=== PATIENT | male | born 1935 | race Caucasian/White ===

== ENCOUNTER → 2016-05-25 | Outpatient (CLI) | payer MEDICARE, BC | LOC: M SMT 10:05 | PROVIDERS: ATTEND Urology | DX: C61 Malignant neoplasm of prostate (principal) ==

== ENCOUNTER → 2016-06-07 | Outpatient (CLI) | payer MEDICARE, BC ==
--- NOTE | 2016-06-07 11:59 | RADONC ---
RADIATION ONCOLOGY FOLLOW UP NOTE DATE: 06/07/2016 DIAGNOSIS: Prostate cancer. STAGE: II, [id number]. ECOG PERFORMANCE STATUS: 0. FOLLOWUP NOTE: Mr. 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 The patient presents today reporting that he is doing quite well with no complaints at this time related to his radiation therapy or disease. He is having no urinary or bowel difficulties and no bone pain. The patient's review of systems is noncontributory. He denies nausea, vomiting, fevers, chills, night sweats, diplopia, headaches, anxiety or depression, anorexia, weight loss, visual disturbances, chest pain, urinary or bowel difficulties, bone pain, or neurological problems. PHYSICAL EXAMINATION: The patient is a well-developed, well-nourished male in no acute distress. HEENT exam is normocephalic, atraumatic. Extraocular movements are intact. There is no palpable cervical, supraclavicular, infraclavicular, axillary, or inguinal lymphadenopathy present. Lungs are clear to auscultation and percussion. Heart has a regular rate and rhythm. Abdomen is benign with no hepatosplenomegaly, masses, or tenderness. Rectal examination reveals a normal anal sphincter tone. His prostate is smooth with no evidence of nodularity. Skeletal examination reveals no tenderness to pressure or percussion of the bony skeleton. Extremities reveal no clubbing, cyanosis, or edema. Neurologic exam is grossly intact as is the remainder of the physical examination. ASSESSMENT: The patient is clinically doing quite well at this point. He has been seen by Dr. Murphy and initiated androgen deprivation therapy. A PSA was done on 05/25/2016 and is now down to 1.7. Prior PSA in March was 10.1. The patient is continuing with his therapy with Dr. Murphy and therefore I have set him up for a routine followup in our office in 1 year. cc: Norberto Samano Jr, MD Alejandro Rodriguez, MD
== END ==
LOC: M ONCR 08:47
PROVIDERS: ATTEND Radiology Radiation Oncology
DX: C61 Malignant neoplasm of prostate (principal)

== ENCOUNTER → 2016-06-13 | Outpatient (REF) | payer MEDICARE, BC ==
[2016-06-13 18:22] LABS: INR 1.07
== END ==
LOC: M LAB REF 16:34
PROVIDERS: ATTEND Internal Medicine Medical Oncology
DX: C61 Malignant neoplasm of prostate (principal); K76.89 Other specified diseases of liver; Z79.899 Other long term (current) drug therapy

== ENCOUNTER → 2016-06-22 | Outpatient (CLI) | payer MEDICARE, BC ==
[~2016-06-22] MED LIST: ACETAMINOPHEN 325 MG TAB As Ordered ONE; LIDOCAINE 1% MDV 20ML VIAL As Ordered ONE
--- NOTE | 2016-06-22 16:51 | REP ---
ULTRASOUND GUIDED LIVER BIOPSY: The procedure was performed under the direct supervision of Dr. Segovia. The patient has a history of a large low density lesion in the liver seen on a previous CT scan dated 04/27/2016. The risks and benefits of the procedure were explained to the patient and informed consent was obtained. The liver mass was localized using ultrasound guidance. The skin was prepped and draped in a sterile fashion. 1% lidocaine was used as local anesthetic. Using ultrasound guidance, a 19/20-gauge coaxial needle biopsy system was inserted and advanced into the liver. Four core biopsy samples were obtained and sent to the lab. The patient tolerated the procedure well and there were no immediate complications. After the appropriate amount of monitored convalescence, the patient was discharged from the department. Reviewed by TRINA Miranda 06/22/2016 05:18 PEdited and Signed by Javi Segovia MD 06/23/2016 06:26 P
== END ==
LOC: M RADPRO 08:08
PROVIDERS: ATTEND Internal Medicine Medical Oncology
DX: D37.6 Neoplasm of uncertain behavior of liver, gallbladder and bile ducts (principal); M19.90 Unspecified osteoarthritis, unspecified site; I48.91 Unspecified atrial fibrillation; R97.20 Elevated prostate specific antigen [PSA]; C61 Malignant neoplasm of prostate; Z87.891 Personal history of nicotine dependence; Z79.899 Other long term (current) drug therapy

== ENCOUNTER → 2016-08-01 | Outpatient (CLI) | payer MEDICARE, BC | LOC: M SMT 13:10 | PROVIDERS: ATTEND Nurse Practitioner Family | DX: R16.0 Hepatomegaly, not elsewhere classified (principal); D37.6 Neoplasm of uncertain behavior of liver, gallbladder and bile ducts ==

== ENCOUNTER → 2016-09-20 | Outpatient (CLI) | payer MEDICARE, BC ==
--- NOTE | 2016-09-21 10:19 | REP ---
PET/CT: HISTORY: Restaging prostate carcinoma. Metastatic disease to the liver. COMPARISONS: Comparison is made with CT study from April 27, 2016. Comparison bone scan April 11, 2016. TECHNIQUE: 55 minutes following the intravenous injection of a 11 mCi dose of F-18 FDG, three-dimensional PET scintigraphy is acquired from the skull base to the proximal thighs. Triplanar noncontrast CT scanning is acquired through the same anatomic range for attenuation correction, and image registration with scan parameters optimized to minimize radiation exposure to the patient. PET scintigraphy and CT datasets were fused and displayed on a workstation with multiplanar and projection display capability. PET/CT FINDINGS: The known large right hepatic lobe liver mass lesion shows an annular pattern of peripheral hypermetabolic uptake. This pattern suggests central necrosis. The maximum standard uptake value within the periphery of the lesion is 8.8. This is along the posterolateral aspect. Interestingly, the lesion appears to have decreased in size in the interval since the April 27, 2016 prior study. It measured 9 cm in greatest dimension on the April 21 CT study and on today's noncontrast CT study its greatest dimension is 5.6 cm. No other hypermetabolic hepatic uptake is seen. There is no evidence of hypermetabolic retroperitoneal or pelvic lymphadenopathy. There are prostate seeds noted on the accompanying CT study. No abnormal hypermetabolic uptake is seen within the chest. The head and neck soft tissues are unremarkable. No pulmonary parenchymal hypermetabolic uptake is seen. There is a calcified granuloma in the left lower lobe. IMPRESSION: The known right hepatic lobe liver mass shows peripheral pattern of hypermetabolic uptake. It has decreased in size however. This pattern raises a question of an inflammatory lesion such as hepatic abscess. Malignancy is not excluded. Consider repeat needle biopsy and aspiration. Signed by Umer Tavarez MD 09/21/2016 01:15 P
== END ==
LOC: M PLARAD 15:29
PROVIDERS: ATTEND Internal Medicine Medical Oncology
DX: C61 Malignant neoplasm of prostate (principal); C78.7 Secondary malignant neoplasm of liver and intrahepatic bile duct
CPT/HCPCS: 78815; A9552

== ENCOUNTER → 2016-09-27 | Outpatient (REF) | payer MEDICARE, BC | LOC: M LAB REF 12:28 | PROVIDERS: ATTEND Internal Medicine Medical Oncology | DX: C61 Malignant neoplasm of prostate (principal) ==

== ENCOUNTER 2016-10-11 22:16 | Inpatient (IN) | payer MEDICARE, BC ==
[~2016-10-11] VITALS: Ht 180.3 cm; Wt 87.0 kg
[2016-10-11] MEDS ORDERED: ELIQ5TAB PO (22:35)
[2016-10-11 23:44] LABS: DIFF SLIDE NUMBER 345; MEAN CORPUSCULAR HEMOGLOBIN 32.3 pg (27.0-33.0); MEAN CORPUSCULAR HGB CONC 35.4 g/dl (32.0-36.5); MEAN CORPUSCULAR VOLUME 91.2 fl (80.0-96.0); RED CELL DISTRIBUTION WIDTH 12.8 % (11.5-14.5); WHITE BLOOD COUNT 3.9 K/mm3 (4.0-10.0)
[2016-10-12 00:05] LABS: ALBUMIN 2.8 GM/DL (3.2-5.2); ALBUMIN/GLOBULIN RATIO 0.78 (1.00-1.93); ALKALINE PHOSPHATASE 115 U/L (45-117); ALT/SGPT 35 U/L (12-78); ANION GAP 7 MEQ/L (8-16); AST/SGOT 21 U/L (15-37); BILIRUBIN,DIRECT 0.5 MG/DL (0.0-0.2); BILIRUBIN,TOTAL 1.9 MG/DL (0.2-1.0); BLOOD UREA NITROGEN 19 MG/DL (7-18); CALCIUM LEVEL 8.7 MG/DL (8.8-10.2); CARBON DIOXIDE LEVEL 25 MEQ/L (21-32); CHLORIDE LEVEL 100 MEQ/L (98-107); CREATININE FOR GFR 1.08 MG/DL (0.70-1.30); GLOMERULAR FILTRATION RATE > 60.0 (>35); GLUCOSE, FASTING 158 MG/DL (83-110); POTASSIUM SERUM 4.2 MEQ/L (3.5-5.1); SODIUM LEVEL 132 MEQ/L (136-145); TOTAL PROTEIN 6.4 GM/DL (6.4-8.2)
[2016-10-12 00:06] LABS: PLATELET COUNT, AUTOMATED 99 k/mm3 (150-450)
[2016-10-12 00:18] LABS: BANDS 3 % (< 11); BASOPHILS 1 % (0-4); EOSINOPHILS 1 % (0-5)
[2016-10-12] MEDS ORDERED: cefTRIAXone SOD 1 GM in D5W MINI-BAG PLUS 50 ML IV ONE (01:45)
[2016-10-12] MEDS ORDERED: ONDA1TAB16 PO (02:01)
[2016-10-12] MEDS ORDERED: SYST1SOL OU (02:01)
[2016-10-12] MEDS ORDERED: PROC10TA PO (02:01)
[2016-10-12] MEDS ORDERED: PROCHLORPERAZINE 5 MG TAB (S0183) PO PRN (05:15)
[2016-10-12] MEDS ORDERED: ONDANSETRON 4 MG TAB (S0181) PO PRN (05:15)
[2016-10-12] MEDS ORDERED: PIPERACILLIN/TAZOBACTAM SOD 4.5 GM in D5W MINI-BAG PLUS 100 ML IV SCH (06:00)
[2016-10-12 06:10] VITALS: BP 130/65
--- NOTE | 2016-10-12 06:23 | PHACANCOPD ---
PHARMACY VANCOMYCIN DOSING Pt Demographics Demographics Patient Age:81 , Weight: , Gender: male Adjusted Body Weight Date: 10/12/16, Adjusted Body Weight: [80] Kg Events Past 24 Hours Events Past 24 Hours: NO: Dialysis, Diuretic Therapy, Change in CrCl, Fever, Elevation in WBC, Pending Diagnostics, Pending Procedures, Other Vancomycin Vancomycin Target Ranges: 15-20 mcg/ml Vancomycin Load Y/N: Yes Load Dose Date Time Vancomycin Load Dose: 1500MG Date: 10-12 Time: 0800 Vancomycin Dose Date: 10/12/16. Current Vancomycin Dose: [1000MG Q12H] Intermittent Dosing?: No Labs Labs Item Value Date Time White Blood Count 3.9 K/mm3 L 10/11/16 2328 Creatinine 1.08 MG/DL 10/11/16 2328 Vital Signs Label Value Date Time Patient Temperature 98.0 degrees F 10/12/16 0520 Temperature Source Temporal 10/12/16 0520 Micro Microbiology 10/12/16 Blood Culture, Received Pending 10/11/16 Blood Culture, Received Pending 10/11/16 Respiratory Virus Panel (PCR) ([facility]) - Final, Complete 10/11/16 Urine Culture, Received Pending Creatinine Clearance Date:10/12/16. Creatinine Clearance: [55]. Pending Labs Trough 06-09 @0700 Assessment and Plan Maintaining Current Dose?: Yes Reason for dose change: No Dose Change Pharmacist Note Pharmacist Note Date: 10/12/16. Pharmacist note:Dosed at 1000mg q12h with a trough ordered 06-09 @ 0700. Will continue to monitor and make adjustments as needed. JEFRY [facility]I [facility] Oct 12, 2016 06:23
[2016-10-12] MEDS ORDERED: VANCOMYCIN HCL 500 MG in D5W MINI-BAG PLUS 100 ML IV ONE (06:30)
--- NOTE | 2016-10-12 07:13 | HPEPDOC ---
General Date of Admission Oct 12, 2016 at 05:22 Primary Care Physician: Jr Samano Collins Attending Physician: VIRGINIA BARKER DO Chief Complaint The patient is a 81-year-old male admitted with a reason for visit of Pneumonia. Source: Patient Exam Limitations: No limitations Timing/Duration: 24 hours Severity: Moderate Associated Symptoms: Cough, Fever, Chills, Loss of appetite History of Present Illness 51-year-old male, history of prostate cancer status post radiation, now metastasis to liver. Received post-chemotherapy on last . Patient is now getting temperature of 101. Cough, fever, chills. Home Medications Scheduled Apixaban Base (Eliquis) 5 Mg Tab, 5 MG PO BID, (Reported) Polyethylene Glycol (Systane 0.4-0.3 %) 15 Ml June, 2 DROP OU BID, (Reported) Scheduled PRN Ondansetron HCl (Ondansetron HCl) 8 Mg Tab, 8 MG PO BID PRN for NAUSEA, ( Reported) Prochlorperazine Maleate (Prochlorperazine Maleate) 10 Mg Tab, 10 MG PO Q6H PRN for NAUSEA, (Reported) Allergies Coded Allergies: No Known Allergies (Verified Allergy, Unknown, 04/13/04) Past Medical History Medical History Prostate cancer Surgical History Hernia Family History Significant Family History: No pertinent family hx Social History * Smoker: Denies Alcohol: Denies Drugs: denies Recent Travel/Sick Contacts: Denies: Recent travel, Recent sick contacts Psychosocial History: No pertinent psych hx Review of Symptoms Constitutional: Reports: Chills, Fever, Malaise, Night Sweats, Weakness Eyes: Denies: Pain, Vision change ENT: Denies: Head Aches, Ear Pain, Dysphagia Skin: Denies: Rash, Lesions, Breakdown Pulmonary: Reports: Dyspnea, Cough, Pleuritic Chest Pain Cardiovascular: Denies: Chest Pain, Palpitations, Orthopnea, Paroxysmal Noc. Dyspnea, Lt Headedness Gastrointestinal: Denies: Nausea, Vomiting, Abdominal Pain, Diarrhea Genitourinary: Denies: Dysuria, Frequency, Incontinence, Retention Hematologic: Denies: Bruising, Bleeding Excessively Musculoskeletal: Denies: Neck Pain, Back Pain, Joint Pain, Muscle Pain, Spasms Neurological: Denies: Weakness, Numbness, Change in speech, Confusion Psych: Reports: Mood Normal, Denies: Depression, Memory Issues Physical Examination General Exam: Positive: Alert, Mild Distress Eye Exam: Positive: PERRLA, Conjunctiva & lids normal, EOMI, Negative: Sclera icteric ENT Exam: Positive: Atraumatic, Mucous membr. moist/pink, Pharynx Normal Neck Exam: Positive: Supple, Negative: JVD, thyromegaly Chest Exam: Positive: Rhonchi, Wheezing, Diminished Heart Exam: Positive: Rate Normal, Regular Rhythm, Normal S1, Normal S2, Negative: Murmurs, Rubs Telemetry: Positive: No significant arrhythmia Abdomen Exam: Positive: Normal bowel sounds, Soft, Negative: Tenderness, Hepatospenomegaly Extremity Exam: Positive: Normal pulses, Negative: Clubbing, Cyanosis, Edema Skin Exam: Positive: Nl turgor and temperature, Negative: Breakdown, Lesion Neuro Exam: Positive: Normal Gait, Normal Speech, Cranial Nerves 3-12 NL, Reflexes 2+ Psych Exam: Positive: Mental status NL, Mood NL, Oriented x 3 Vital Signs Vital Signs Date Time Temp Pulse Resp B/P (MAP) Pulse Ox O2 Delivery O2 Flow Rate FiO2 10/12/16 06:10 97.9 102 17 130/65 (86) 96 Room Air Laboratory Data Labs 24H Laboratory Tests 2 10/11/16 23:28: Neutrophils 53, Band Neutrophils 3, Lymphocytes (Manual) 26, Monocytes (Manual) 13H, Eosinophils (Manual) 1, Basophils (Manual) 1, Metamyelocytes 1H, Atypical Lymphocytes 2, Platelet Estimate DECREASED, Red Blood Cell Morphology NORMAL, Urine Appearance HAZY, Urine Color ADILENE, Urine pH 6.0, Urine Specific Liberal 1.020, Urine Protein 1+H, Urine Glucose (UA) NEGATIVE, Urine Ketones TRACEH, Urine Urobilinogen 2.0H, Urine Bilirubin NEGATIVE, Urine Leukocyte Esterase NEGATIVE, Urine Blood NEGATIVE, Urine Nitrite NEGATIVE, Urine WBC (Auto) 2, Urine RBC (Auto) 4H, Urine Hyaline Casts (Auto) 19, Urine Bacteria (Auto) NEGATIVE, Urine Squamous Epithelial Cells 0, Urine Mucus (Auto) SMALL, Urine Sperm (Auto) , Anion Gap 7L, Glomerular Filtration Rate > 60.0, Lactic Acid Level 1.6, Calcium Level 8.7L, Aspartate Amino Transf (AST/SGOT) 21, Alanine Aminotransferase (ALT/SGPT) 35, Alkaline Phosphatase 115, Total Bilirubin 1.9H, Direct Bilirubin 0.5H, Total Protein 6.4, Albumin 2.8L, Albumin/Globulin Ratio 0.78L CBC/BMP Laboratory Tests 10/11/16 23:28 Red Blood Count 4.27 L, Mean Corpuscular Volume 91.2, Mean Corpuscular Hemoglobin 32.3, Mean Corpuscular Hemoglobin Concent 35.4, Red Cell Distribution Width 12.8 Microbiology Microbiology 10/12/16 Blood Culture, Received Pending 10/11/16 Blood Culture, Received Pending 10/11/16 Respiratory Virus Panel (PCR) ([facility]) - Final, Complete 10/11/16 Urine Culture, Received Pending Assessment/Plan 81-year-old male, history of prostate cancer status post radius and metastasis to liver and getting chemotherapy last week presented with them cough, fever, chills and found to have an pneumonia. Problems (1) Pneumonia Status: Acute Problem Text: As started on IV Zosyn and vancomycin. white Blood count 3.9 percent in follow-up oncology on outpatient Plan / VTE VTE Prophylaxis Ordered?: Yes Plan IVF: Initiate Diet: Continue Current Activity: Continue Current Anticipated Discharge: Home LULA LOCKHART MD Oct 12, 2016 07:13
[2016-10-12] MEDS: VANCOMYCIN HCL 1,000 MG, VIAL MATE ADAPTER 1 EACH in D5W 250 ML IV SCH ×2 (08:19→20:19)
[2016-10-12] MEDS: APIXABAN 5 MG TAB (ELIQUIS) PO SCH ×2 (08:20→22:06)
[2016-10-12] MEDS: POLYVINYL ALCOHOL OPHTH SOLN 15 ML(LIQUITEARS) OU SCH ×2 (08:38→21:00)
--- NOTE | 2016-10-12 08:41 | REP ---
Chest x-ray: Two views. History: Systemic inflammatory response syndrome. Comparison study: December 18, 2015. There is increased density overlying the dome of the right hemidiaphragm in the right lower lobe consistent with an infiltrate. Lung oconnell are otherwise clear. Heart size is normal. The aorta is calcific and tortuous. There are degenerative changes in the thoracic spine and in the shoulders. No evidence of free subdiaphragmatic air. Impression: Right lower lobe infiltrate. Signed by Umer Tavarez MD 10/12/2016 10:18 A
[2016-10-12 09:37] LABS: MEAN CORPUSCULAR HEMOGLOBIN 32.5 pg (27.0-33.0); MEAN CORPUSCULAR HGB CONC 35.3 g/dl (32.0-36.5); RED CELL DISTRIBUTION WIDTH 12.8 % (11.5-14.5); WHITE BLOOD COUNT 8.5 K/mm3 (4.0-10.0)
[2016-10-12] MEDS: PIPERACILLIN/TAZOBACTAM SOD 4.5 GM in D5W MINI-BAG PLUS 100 ML IV SCH ×3 (09:47→22:06)
[2016-10-12 10:00] VITALS: BP 112/67
[2016-10-12 10:09] LABS: ANION GAP 10 MEQ/L (8-16); BLOOD UREA NITROGEN 18 MG/DL (7-18); CALCIUM LEVEL 8.4 MG/DL (8.8-10.2); CARBON DIOXIDE LEVEL 27 MEQ/L (21-32); CHLORIDE LEVEL 99 MEQ/L (98-107); CREATININE FOR GFR 1.13 MG/DL (0.70-1.30); GLOMERULAR FILTRATION RATE > 60.0 (>35); GLUCOSE, FASTING 205 MG/DL (83-110); POTASSIUM SERUM 3.8 MEQ/L (3.5-5.1); SODIUM LEVEL 136 MEQ/L (136-145)
--- NOTE | 2016-10-12 11:00 | IPN ---
DATE: 10/12/2016 81-year-old gentleman seen at bedside. He feels that he is less short of breath. Does continue to have difficulty with cough. He informs me that he is being treated for prostate cancer, has radioactive seeds placed by Dr. Murphy and follows with Dr. Wang for his chemotherapy. His last dose of chemotherapy was approximately a week ago. He states that he did have some subjective fevers, chills at home as well as this productive cough that he seems to be having. OBJECTIVE: Temperature is 97.9, pulse 94, respiratory rate 17 and nonlabored, blood pressure 130/65, SPO2 is 96% on room air. GENERAL: The patient appears to be in no acute distress, alert and oriented. HEENT: Unremarkable. LUNGS: Diminished bibasilar breath sounds, occasional wheeze. HEART: Regular rate and rhythm. ABDOMEN: Soft. EXTREMITIES: No edema or calf tenderness. LABORATORY DATA: White count 8.5, hemoglobin 13.3, platelets 100,000. Sodium is 136, potassium 3.8, chloride 99, bicarb 27, anion gap 10, BUN is 18, creatinine 1.13, glucose 205. ASSESSMENT/PLAN: 1. Community acquired pneumonia. Continue with current antibiotic regimen. Will check blood cultures, sputum cultures. Those are pending at this time. 2. Neutropenia. This is resolved with appropriate response with his current infection. Will continue to follow. 3. Thrombocytosis. Appears to be stable. Will avoid any heparin products. 4. Prostate cancer as indicated above. Continue to followup outpatient with Dr. Wang and Dr. Murphy. He does have a history of metastatic disease with spread to the liver. 5. DVT prophylaxis. Thromboembolic deterrent stockings (TEDS) and sequentials. Encouraged to ambulate when he is not in bed. DISPOSITION: Anticipate home discharge in the next 24-48 hours.
[2016-10-12 14:00] VITALS: BP 119/69
[2016-10-12] MEDS: ONDANSETRON 4MG/2ML VIAL (J2405) IV PRN ×2 (17:22→22:06)
[2016-10-12 22:00] VITALS: BP 113/60
[2016-10-13 02:00] VITALS: BP 125/66
[2016-10-13] MEDS: PIPERACILLIN/TAZOBACTAM SOD 4.5 GM in D5W MINI-BAG PLUS 100 ML IV SCH (03:00)
[2016-10-13 06:00] VITALS: BP 114/67
[2016-10-13] MEDS ORDERED: DOXY-278 PO (07:32)
[2016-10-13] MEDS: POLYVINYL ALCOHOL OPHTH SOLN 15 ML(LIQUITEARS) OU SCH (08:00)
[2016-10-13] MEDS: APIXABAN 5 MG TAB (ELIQUIS) PO SCH (08:00)
--- NOTE | 2016-10-13 08:15 | DSES ---
DATE OF ADMISSION: 10/12/2016 DATE OF DISCHARGE: 10/13/2016 ADMISSION/DISCHARGE DIAGNOSES: 1. Community-acquired pneumonia. 2. Prostate cancer with metastatic disease on chemotherapy and radioactive seed therapy. 3. Thrombocytosis likely secondary to chemotherapy. 4. Neutropenia, which has resolved, likely secondary to chemotherapy. BRIEF HOSPITAL COURSE: 81-year-old gentleman presented to the emergency department on 10/12/2016 with increasing shortness of breath, productive sputum, cough, noted neutropenia of 3.9, platelet count of 99,000 with some thrombocytosis likely secondary to his chemotherapy as well. His chest x-ray did show a right lower lobe infiltrate. He was admitted, started on Zosyn, vancomycin. Has remained afebrile. Labs are unremarkable with a normalized white count. He does have some mild thrombocytosis, however this does appear to be improving as well, and he is felt to be at his baseline. Again, he has remained afebrile, normal white count, no signs of sepsis and is felt to be appropriate for home discharge on oral antibiotics. He reports no known drug allergies. He did give us a sputum culture, which does not have a result at this time, but his blood cultures remain negative. He had a negative respiratory virus panel as well. Discharge condition is good. DISPOSITION: Discharge to home. DISCHARGE MEDICATIONS: - doxycycline 100 mg twice a day for 10 days - Eliquis 5 mg twice a day - Zofran ODT 8 mg twice a day as needed - Systane eye drops - Compazine 10 mg every 6 hours as needed, nausea DISCHARGE INSTRUCTIONS: Discharge to home. Activity as tolerated. Regular diet. Followup with primary care provider in a week. See his oncologist for regular scheduled appointments and ongoing chemotherapy. Seek medical attention if symptoms should worsen. Voices understanding. Discharge took approximately 35 minutes. JOSE ANTONIO
== END 2016-10-13 09:57 | disposition home or self-care (01) | DRG 194 ==
LOC: M ED 23:22 → M ED INP 10-12 05:22 → M MSPAV 10-12 06:08
PROVIDERS: ADMIT Internal Medicine; ATTEND Hospitalist
DX: J18.9 Pneumonia, unspecified organism (principal); C78.7 Secondary malignant neoplasm of liver and intrahepatic bile duct; C61 Malignant neoplasm of prostate; D70.1 Agranulocytosis secondary to cancer chemotherapy; D47.3 Essential (hemorrhagic) thrombocythemia; Z79.899 Other long term (current) drug therapy

== ENCOUNTER → 2016-11-27 | Outpatient (CLI) | payer MEDICARE, BC ==
[~2016-11-27] MED LIST changes: -ACETAMINOPHEN 325 MG TAB As Ordered ONE; +DOXY-278 PO; +ELIQ5TAB PO; -LIDOCAINE 1% MDV 20ML VIAL As Ordered ONE; +ONDA8TAB7 PO; +PROC10TA PO; +SYST1SOL OU
[2016-11-27 14:28] LABS: MEAN CORPUSCULAR HEMOGLOBIN 32.7 pg (27.0-33.0); MEAN CORPUSCULAR HGB CONC 33.7 g/dl (32.0-36.5); MEAN CORPUSCULAR VOLUME 96.9 fl (80.0-96.0); RED CELL DISTRIBUTION WIDTH 13.4 % (11.5-14.5); WHITE BLOOD COUNT 4.5 K/mm3 (4.0-10.0)
[2016-11-27 14:56] LABS: ANION GAP 7 MEQ/L (8-16); BLOOD UREA NITROGEN 12 MG/DL (7-18); CALCIUM LEVEL 9.3 MG/DL (8.8-10.2); CARBON DIOXIDE LEVEL 27 MEQ/L (21-32); CHLORIDE LEVEL 104 MEQ/L (98-107); CREATININE FOR GFR 0.92 MG/DL (0.70-1.30); GLOMERULAR FILTRATION RATE > 60.0 (>35); GLUCOSE, FASTING 95 MG/DL (83-110); POTASSIUM SERUM 4.5 MEQ/L (3.5-5.1); SODIUM LEVEL 138 MEQ/L (136-145)
== END ==
LOC: M SMT 08:32
PROVIDERS: ATTEND Urology
DX: C61 Malignant neoplasm of prostate (principal)

== ENCOUNTER → 2017-01-17 | Outpatient (REF) | payer MEDICARE, BC | LOC: M LAB REF 12:28 | PROVIDERS: ATTEND Internal Medicine Medical Oncology | DX: C61 Malignant neoplasm of prostate (principal) ==

== ENCOUNTER → 2017-02-09 | Outpatient (CLI) | payer MEDICARE, BC ==
--- NOTE | 2017-02-13 07:00 | RADONC ---
RADIATION ONCOLOGY FOLLOWUP NOTE DATE: 02/09/2017 CHART NUMBER: [id number] DIAGNOSIS: Prostate cancer. STAGE: Metastatic. ECOG PERFORMANCE STATUS: 0. FOLLOWUP NOTE: Mr. Steve is a very pleasant 81-year-old white male with the diagnosis of metastatic moderate to poorly differentiated adenocarcinoma of the prostate who is presenting to us again for followup visit to discuss his options. The patient is having no bone pain, back pain or other issues. He has no urinary or bowel difficulties. REVIEW OF SYSTEMS: The patient's review of systems is noncontributory. Denies nausea, vomiting, fevers, chills, night sweats, diplopia, headaches, anxiety or depression, anorexia, weight loss, visual disturbances, chest pain, urinary or bowel difficulties, bone pain, or neurological problems. PHYSICAL EXAMINATION: The patient is a well-developed, well-nourished male in no acute distress. HEENT exam is normocephalic, atraumatic. Extraocular movements are intact. There is no palpable cervical, supraclavicular, infraclavicular, axillary, or inguinal lymphadenopathy present. Lungs are clear to auscultation and percussion. Heart has a regular rate and rhythm. Abdomen is benign with no hepatosplenomegaly, masses, or tenderness. Rectal examination reveals a normal anal sphincter tone. His prostate is smooth with no evidence of nodularity. Skeletal examination reveals no tenderness to pressure or percussion of the bony skeleton. Extremities reveal no clubbing, cyanosis, or edema. Neurologic exam is grossly intact, as is the remainder of the physical examination. ASSESSMENT: I had a very lengthy discussion with this patient and his family lasting well more than half an hour. We discussed whether or not he is going to have his CT scans which are scheduled for sometime in April I believe. I made clear to them that the choice is his. He reports that he will not accept chemotherapy regardless of the results. I told him if the results would not change anything other than make him nervous then he may reasonably consider not doing the scan. If however the scans will lead to a different path in treatment then they are reasonable to do. Once again, I made clear to him that a scan is not a significantly invasive type procedure. Indeed, considering the amount of radiation he has had overall, any radiation from a CT scan would be negligible. I made clear that the patient and his family simply need to focus on what the results would mean to them personally and if they want to know the answer. They are aware that the news could be good and everything is stable or it could show progress in which case a decision would need to be made. I have not set up any appointments with us, but he is more than welcome to come back on a p.r.n. basis. cc: Ana Wang MD, WARNER Smaano Jr, MD Alejandro Rodriguez, MD
== END ==
LOC: M ONCR 13:35
PROVIDERS: ATTEND Radiology Radiation Oncology
DX: C61 Malignant neoplasm of prostate (principal)

== ENCOUNTER → 2017-04-03 | Outpatient (REF) | payer MEDICARE, BC | LOC: M LAB REF 12:46 | PROVIDERS: ATTEND Internal Medicine Medical Oncology | DX: C61 Malignant neoplasm of prostate (principal) ==

== ENCOUNTER → 2017-04-09 | Outpatient (CLI) | payer MEDICARE, BC ==
[~2017-04-09] MED LIST changes: +GASTROGRAFIN SOLUTION 30ML (Q9963) As Ordered ONE; +ISOVUE-370 76% 100ML VIAL (Q9967) As Ordered ONE
--- NOTE | 2017-04-09 12:50 | REP ---
CT of the chest abdomen pelvis with IV and oral contrast: Comparison is 04/27/2016. CT of the chest: There are small hypo densities in the right lobe of the thyroid. These have decreased size from the prior study and are likely thyroid cyst. Consider thyroid ultrasound for follow-up. The calcified granuloma in the lower lobe of the left lung is unchanged. There are no other lung masses or nodules. The anterior tip of the right rib is unchanged, likely representing costochondral calcification. No lytic, blastic or destructive skeletal changes are identified. There are multiple levels of thoracic spine degenerative disc disease. This is unchanged. There is no mediastinal or hilar adenopathy. No axillary adenopathy. Impression: No significant interval change. Hypodense nodules are noted in the thyroid right lobe, decreased in size, likely a thyroid cyst. Consider thyroid ultrasound. Stable calcified granuloma in the left lower lobe. Stable findings at the anterior tip of right first rib compatible with costochondral calcification. CT of the abdomen and pelvis: Comparison is 04/27/2016. Studies performed without and with IV contrast. After IV contrast, multiphase scanning is performed. This is similar to the prior study. The hypodense lesion in the right lobe of the liver is significantly decreased in size, today measuring 4.4 cm (previously 9.0 cm). There are no other focal hepatic lesions. The gallbladder, pancreas and spleen are unremarkable except for multiple small gallbladder cholesterol calculi and splenic calcified granulomas. These are unchanged. The adrenals are unremarkable. There are left renal cortical cysts. These are unchanged. There is no hydronephrosis. The kidneys are otherwise are unremarkable. The abdominal aorta is unremarkable except for tortuosity. There is no retroperitoneal adenopathy. The bowel and mesentery are unremarkable. Pelvis: There is no adenopathy. The bladder is unremarkable. Iridium seeds are noted in the prostate bed. This is unchanged. The bladder is unremarkable. There are no lytic, blastic or destructive skeletal changes. There is bilateral hip osteoarthritis. Impression: The hypodense lesion in the liver has decreased in size. There is no adenopathy or ascites. There are no lytic, blastic or destructive skeletal changes. Iridium seeds are again noted in the prostate bed. There is bilateral hip osteoarthritis, unchanged. The previously identified cholesterol gallbladder calculi are unchanged. Signed by Javi Shah MD 04/09/2017 12:42 P
== END ==
LOC: M RAD 08:43
PROVIDERS: ATTEND Internal Medicine Medical Oncology
DX: C61 Malignant neoplasm of prostate (principal); C78.7 Secondary malignant neoplasm of liver and intrahepatic bile duct; E04.1 Nontoxic single thyroid nodule
CPT/HCPCS: 71260; 74178; Q9963; Q9967

== ENCOUNTER → 2017-05-24 | Outpatient (CLI) | payer MEDICARE, BC ==
[2017-05-24 14:28] LABS: PROSTATIC SPECIFIC AG MONITOR < 0.01 NG/ML (< 4.0)
== END ==
LOC: M SMT 11:04
DX: C61 Malignant neoplasm of prostate (principal)
CPT/HCPCS: 84153

== ENCOUNTER → 2017-05-30 | Outpatient (REF) | payer MEDICARE, BC ==
[2017-05-30 14:16] LABS: APPEARANCE, URINE HAZY (CLEAR); BACTERIA, URINE AUTO NEGATIVE (NEGATIVE); BILIRUBIN, URINE AUTO NEGATIVE (NEGATIVE); BLOOD, URINE BLOOD NEGATIVE (NEGATIVE); CALCIUM OXALATE CRYSTALS LARGE; COLOR, URINE YELLOW (YELLOW); GLUCOSE, URINE (UA) AUTO NEGATIVE (NEGATIVE); KETONE, URINE AUTO NEGATIVE (NEGATIVE); LEUKOCYTE ESTERASE, URINE AUTO NEGATIVE (NEGATIVE); MUCUS, URINE SMALL (NEGATIVE); NITRITE, URINE AUTO NEGATIVE (NEGATIVE); PROTEIN, URINE AUTO NEGATIVE (NEGATIVE); RBC, URINE AUTO 0 /HPF (0-3); SPECIFIC GRAVITY URINE AUTO 1.016 (1.002-1.035); SQUAMOUS EPITHELIAL CELL UR AU 0 /HPF (0-6); UROBILINOGEN, URINE AUTO 0.2 mg/dL (0.0-2.0); WBC, URINE AUTO 1 /HPF (0-3)
== END ==
LOC: M SMT 12:55
DX: R39.9 Unspecified symptoms and signs involving the genitourinary system (principal); Z85.46 Personal history of malignant neoplasm of prostate
CPT/HCPCS: 81001

== ENCOUNTER → 2017-08-24 | Outpatient (REF) | payer MEDICARE, BC | LOC: M SMT 16:47 | DX: Z85.46 Personal history of malignant neoplasm of prostate (principal) | CPT/HCPCS: 88108 ==

== ENCOUNTER 2017-08-26 12:45 | Emergency (ER) | payer MEDICARE, BC | END 2017-08-26 13:56 | disposition home or self-care (01) | LOC: M ED 12:45 | DX: T83.098A Other mechanical complication of other urinary catheter, initial encounter (principal); Y92.9 Unspecified place or not applicable; Y93.9 Activity, unspecified; I48.91 Unspecified atrial fibrillation; Z85.05 Personal history of malignant neoplasm of liver; Z85.46 Personal history of malignant neoplasm of prostate; Z79.01 Long term (current) use of anticoagulants; Z79.899 Other long term (current) drug therapy | CPT/HCPCS: 99283 ==

== ENCOUNTER → 2017-09-10 | Outpatient (REF) | payer MEDICARE, BC | LOC: M SMT 13:12 | DX: N35.9 Urethral stricture, unspecified (principal); Z85.46 Personal history of malignant neoplasm of prostate; R31.9 Hematuria, unspecified | CPT/HCPCS: 87086 ==

== ENCOUNTER → 2017-10-10 | Outpatient (REF) | payer MEDICARE, BC ==
[2017-10-10 14:14] LABS: APPEARANCE, URINE CLOUDY (CLEAR); BACTERIA, URINE AUTO NEGATIVE (NEGATIVE); BILIRUBIN, URINE AUTO NEGATIVE (NEGATIVE); BLOOD, URINE BLOOD NEGATIVE (NEGATIVE); CALCIUM OXALATE CRYSTALS MODERATE; COLOR, URINE YELLOW (YELLOW); GLUCOSE, URINE (UA) AUTO NEGATIVE (NEGATIVE); KETONE, URINE AUTO NEGATIVE (NEGATIVE); LEUKOCYTE ESTERASE, URINE AUTO NEGATIVE (NEGATIVE); MUCUS, URINE SMALL (NEGATIVE); NITRITE, URINE AUTO NEGATIVE (NEGATIVE); PROTEIN, URINE AUTO 1+ mg/dL (NEGATIVE); RBC, URINE AUTO 14 /HPF (0-3); SPECIFIC GRAVITY URINE AUTO 1.019 (1.002-1.035); SQUAMOUS EPITHELIAL CELL UR AU 0 /HPF (0-6); UROBILINOGEN, URINE AUTO 0.2 mg/dL (0.0-2.0); WBC, URINE AUTO 0 /HPF (0-3)
== END ==
LOC: M SMT 13:37
DX: C61 Malignant neoplasm of prostate (principal)
CPT/HCPCS: 81001

== ENCOUNTER → 2017-10-22 | Outpatient (REF) | payer MEDICARE, BC ==
[2017-10-22 15:48] LABS: PROSTATIC SPECIFIC AG MONITOR 0.02 NG/ML (< 4.0)
== END ==
LOC: M LAB REF 13:20
DX: C61 Malignant neoplasm of prostate (principal)
CPT/HCPCS: 84153

== ENCOUNTER → 2017-11-22 | Outpatient (CLI) | payer MEDICARE, BC ==
[2017-11-22 14:32] LABS: PROSTATIC SPECIFIC AG MONITOR 0.03 NG/ML (< 4.0)
== END ==
LOC: M SMT 09:47
DX: Z85.46 Personal history of malignant neoplasm of prostate (principal)
CPT/HCPCS: 84153

== ENCOUNTER → 2018-06-04 | Outpatient (CLI) | payer MEDICARE, BC ==
[~2018-06-04] MED LIST changes: +CIPR500T3 PO; +DITR1TAB PO; -DOXY-278 PO; +DOXY-350 PO; -GASTROGRAFIN SOLUTION 30ML (Q9963) As Ordered ONE; -ISOVUE-370 76% 100ML VIAL (Q9967) As Ordered ONE; +PROB1TAB PO; -PROC10TA PO; +PROC10TA4 PO
== END ==
LOC: M SMT 09:15
PROVIDERS: ATTEND Nurse Practitioner Women's Health
DX: Z85.46 Personal history of malignant neoplasm of prostate (principal)

== ENCOUNTER → 2018-10-31 | Outpatient (CLI) | payer MEDICARE, BC ==
[~2018-10-31] MED LIST changes: +ODOR100T3 PO; +[UNRECOGNIZED DRUG - CODE] PO
--- NOTE | 2018-10-31 15:46 | REP ---
Clinical: Prostate cancer with hepatic metastatic disease. Comparison: 04/09/2017 Technique: Axial noncontrast images of the abdomen with coronal and sagittal re-formations. Findings: Lung bases demonstrate chronic changes without obvious acute process. Comparison is limited due to differences in technique (current examination without intravenous contrast enhancement) and the previously noted 4.4 cm area of low density consistent with metastatic focus currently measures approximately 3.5 cm. However, an adjacent lesion which is not definitively noted on prior examination is suspected and measures 2.7 cm maximal diameter. Smaller lesions cannot be excluded as well. Hepatic and splenic parenchymal calcifications are chronic. Cholelithiasis noted. Pancreas, bilateral adrenal glands and kidneys are relatively normal / stable. Stable left renal cyst again identified measuring approximately 3.7 cm diameter. Visualized small and large bowel grossly unremarkable. No ascites. No obvious adenopathy. Abdominal aorta demonstrates atherosclerotic changes without aneurysm. Osseous structures demonstrate degenerative changes. Impression: 1. Low density lesions within the liver as described above consistent with metastatic disease. Comparison is limited due to differences in technique, but the current examination suggests two adjacent lesions and smaller lesions cannot be excluded. 2. Cholelithiasis. 3. Stable left renal cyst. Electronically Signed by Lance Gleason MD 10/31/2018 03:36 P
== END ==
LOC: M RAD 15:05
PROVIDERS: ATTEND Internal Medicine Hematology & Oncology
DX: K80.19 Calculus of gallbladder with other cholecystitis with obstruction (principal); N28.1 Cyst of kidney, acquired; C78.7 Secondary malignant neoplasm of liver and intrahepatic bile duct

== ENCOUNTER → 2019-01-08 | Outpatient (CLI) | payer MEDICARE, BC ==
[~2019-01-08] MED LIST changes: +COLA100C5 PO; +HYDR-3715 PO; +NORC1TAB7 PO; +ONDA8TAB10 PO; -ONDA8TAB7 PO
== END ==
LOC: M SMT 09:31
PROVIDERS: ATTEND Urology
DX: C61 Malignant neoplasm of prostate (principal)

== ENCOUNTER → 2019-01-21 | Outpatient (POV) | payer MEDICARE, BC ==
[~2019-01-21] VITALS: Ht 180.3 cm; Wt 83.2 kg
[~2019-01-21] MED LIST changes: -COLA100C5 PO; -HYDR-3715 PO; -NORC1TAB7 PO; -ONDA8TAB10 PO; +ONDA8TAB7 PO
[2019-01-21 09:15] VITALS: BP 135/81
--- NOTE | 2019-01-22 11:17 | IRCOV ---
[facility] IR Consult Office Visit IR Consult Office Visit DATE: Jan 21, 2019 REASON FOR CONSULTATION/CHIEF COMPLAINT: Metastatic liver lesion associated with right upper quadrant pain. HISTORY OF PRESENT ILLNESS: 83-year-old gentleman referred by Gen. surgery for liver metastases associated with pain. Patient has a known history of stage IV prostate cancer. This was previously treated with radiation therapy seeds several years ago. He developed poorly differentiated metastatic disease in the liver. He was treated with docetaxel which was associated with intolerable side effects. He has since received Lupron. He describes pain up by the ribs on the right upper quadrant which is there all the time. No aggravating or relieving factors. No association with pain anywhere else. No shortness of breath. No jaundice. No bone pain anywhere. No fevers or chills. No ascites. Patient is also under the care of Dr. Mcdowell and Dr. Jo. ALLERGIES: Please see below. HOME MEDICATIONS: Please see below. PAST MEDICAL HISTORY: 1. Prostate cancer. 2. A. fib. PAST SURGICAL HISTORY: 1. Hernia repair. FAMILY HISTORY: Nonsignificant. SOCIAL HISTORY: Nonsmoker. No significant alcohol. Lives with family. Independent with activities of daily living. REVIEW OF SYSTEMS: Otherwise negative. PHYSICAL EXAMINATION: VITAL SIGNS: Please see below. GENERAL APPEARANCE: Appears well. Comfortable at rest. HEENT: No scleral icterus. RESPIRATORY: Symmetric breath sounds. CARDIOVASCULAR: Normal rate. ABDOMEN: Nondistended. Soft nontender. No shifting dullness. EXTREMITIES: Moving all 4 extremities. Walks unaided. NEUROLOGICAL: Alert and oriented. Normal gait. PSYCHIATRIC: Appropriate to circumstance. LABORATORY DATA: Please see below. Imaging: I personally reviewed the CT scan from October 2018. There is a bilobed hypodense lesion in the right hepatic lobe, changed in configuration and appearance from the CT in 2017. This abuts the capsular surface and is associated with dimpling of the liver capsule. ASSESSMENT/PLAN: 83-year-old male with liver metastases from prostate cancer presents with pain in the right quadrant. This is likely related to capsular involvement by metastatic Disease. This is amenable to Microwave Ablation for both local disease control and symptomatic relief. I discussed the risks and benefits of the procedure with the patient and patient would like to proceed. We will schedule the patient for Microwave ablation of the liver lesion to be done under MAC sedation. Eliquis hold is required 48 Hours prior to procedure. Thank you for this referral. I spent 30 minutes in consultation with the patient. Thank you for this referral. Allergies Coded Allergies: No Known Allergies (Verified , 04/13/04) Home Medications Scheduled Apixaban (Eliquis), 5 MG PO BID, (Reported) L.dinah,Acid,Ferm,Rhm/B.bif,Long (Control Delivery Probiotc Cplt), 1 TAB PO DAILY, (Reported) Pedi Mv No.164/Ferrous Sulfate (-Toddler Multivit-Iron), 1 SUMIT PO DAILY, (Reported) Miscellaneous Medications Garlic (Garlic), 100 MG PO, (Reported) VS, I&O, 24H, Fishbone Vital Signs/I&O Vital Signs Date Time Temp Pulse Resp B/P (MAP) Pulse Ox O2 Delivery O2 Flow Rate FiO2 01/21/19 09:15 97.5 71 16 135/81 (99) 98 MELINDA WILDE MD Jan 22, 2019 11:17
== END ==
LOC: M IRPOV 09:19
PROVIDERS: ATTEND Radiology Diagnostic Radiology
DX: R10.11 Right upper quadrant pain (principal); C61 Malignant neoplasm of prostate; C78.7 Secondary malignant neoplasm of liver and intrahepatic bile duct; I48.91 Unspecified atrial fibrillation; Z92.3 Personal history of irradiation; Z79.01 Long term (current) use of anticoagulants

== ENCOUNTER → 2019-02-24 | Outpatient (CLI) | payer MEDICARE, BC ==
[2019-02-24 10:57] LABS: PROSTATIC SPECIFIC AG MONITOR 2.28 NG/ML (< 4.00)
== END ==
LOC: M SMT 08:42
PROVIDERS: ATTEND Urology
DX: C61 Malignant neoplasm of prostate (principal)

== ENCOUNTER → 2019-02-27 | Outpatient (CLI) | payer MEDICARE, BC ==
[~2019-02-27] MED LIST changes: +HYDR-3715 PO
[2019-02-27 14:06] LABS: BLOOD UREA NITROGEN 11 MG/DL (7-18); CALCIUM LEVEL 9.3 MG/DL (8.8-10.2); CARBON DIOXIDE LEVEL 31 MEQ/L (21-32); CHLORIDE LEVEL 106 MEQ/L (98-107); CREATININE FOR GFR 1.01 MG/DL (0.70-1.30); GLOMERULAR FILTRATION RATE > 60.0 (>35); GLUCOSE, FASTING 101 MG/DL (70-100); POTASSIUM SERUM 4.5 MEQ/L (3.5-5.1); SODIUM LEVEL 140 MEQ/L (136-145)
== END ==
LOC: M SMT 11:44
PROVIDERS: ATTEND Urology
DX: R97.21 Rising PSA following treatment for malignant neoplasm of prostate (principal); C61 Malignant neoplasm of prostate

== ENCOUNTER → 2019-02-28 | Outpatient (REF) | payer MEDICARE, BC ==
[2019-02-28 16:22] LABS: INR 1.18; PROTHROMBIN TIME 14.7 SECONDS (11.8-14.0)
== END ==
LOC: M LAB REF 16:06
PROVIDERS: ATTEND Nurse Practitioner Adult Health
DX: Z01.818 Encounter for other preprocedural examination (principal); Z79.01 Long term (current) use of anticoagulants

== ENCOUNTER → 2019-03-03 | Outpatient (CLI) | payer MEDICARE, BC ==
[~2019-03-03] MED LIST changes: +ISOVUE-370 76% 100ML VIAL (Q9967) As Ordered ONE
--- NOTE | 2019-03-03 10:14 | REP ---
Clinical: History of prostate cancer with rising PSA levels. Technique: Axial contrast enhanced images from the lung bases to the pubic symphysis using 100 ml Isovue 370 intravenous contrast material with coronal and sagittal re-formations as well as delayed images of the abdomen. Comparison: 10/31/2018, 04/09/2017 Findings: Evaluation of the liver demonstrates two irregular mass lesions measuring approximately 3.4 cm and 4.4 cm maximal diameter each which demonstrate irregular enhancement patterns and have increased in size from prior examination suggesting active metastatic disease. Spleen, pancreas, bilateral adrenal glands and kidneys are relatively normal / stable. Simple left renal cysts again noted and measuring up to 3.4 cm. Cholelithiasis identified without acute cholecystitis. Moderate fecal stasis is suggested without bowel obstruction or acute inflammatory process. Pelvis demonstrates normal bladder and evidence for prior prostate surgery. No ascites. No free air. No intraperitoneal or retroperitoneal adenopathy. Atherosclerotic changes to the aorta and vasculature noted without aneurysm or dissection. Osseous structures demonstrate degenerative changes although underlying osseous metastatic disease cannot definitively be excluded. Lung bases demonstrate emphysematous changes and calcified granulomata without acute process. Impression: 1. Enlarging hepatic lesions consistent with active metastatic disease. 2. Stable simple left renal cyst. 3. Cholelithiasis. 4. Moderate fecal stasis. Electronically Signed by Lance Gleason MD 03/03/2019 10:05 A
--- NOTE | 2019-03-03 15:16 | REP ---
WHOLE BODY BONE SCAN: Following the intravenous administration of 22 mCi of technetium-99m MDP, patient's whole body is imaged in the anterior and posterior projections. Additional oblique images are performed. Comparison made with prior study of 04/11/2016. Once again there is scattered arthritic uptake, specifically in the shoulders, cervical spine, right sternoclavicular joint, lumbar spine, left hip joint, bilateral knees, and right foot. No suspicious foci or new foci of increased uptake are seen in the axial or appendicular skeleton. Renal and bladder activity are seen. IMPRESSION: Once again there is scattered arthritic uptake in the axial and appendicular skeletal as discussed above, with no significant change compared to the prior study of 04/11/2016. No compelling scintigraphic evidence of osseous metastases. Electronically Signed by Javi Segovia MD 03/03/2019 03:42 P
== END ==
LOC: M RAD 09:07
PROVIDERS: ATTEND Urology
DX: K76.89 Other specified diseases of liver (principal); N28.1 Cyst of kidney, acquired; K80.80 Other cholelithiasis without obstruction; R97.21 Rising PSA following treatment for malignant neoplasm of prostate; C61 Malignant neoplasm of prostate
CPT/HCPCS: 74177; 78306; A9503; Q9967

== ENCOUNTER → 2019-03-10 | Outpatient (CLI) | payer MEDICARE, BC ==
[~2019-03-10] MED LIST changes: -ISOVUE-370 76% 100ML VIAL (Q9967) As Ordered ONE; +LIDOCAINE 1% MDV 20ML VIAL As Ordered ONE; +LR 1,000 ML IV SCH; +MIDAZOLAM INJ 2 MG/2 ML VIAL (J2250) As Ordered ONE; +MORPHINE 2 MG/ML 1ML VIAL (J2270) As Ordered ONE; +ONDANSETRON 4MG/2ML VIAL (J2405) IV PRN; +PERCOCET 5MG/325MG TAB As Ordered ONE; +PERCOCET 5MG/325MG TAB PO PRN; +fentaNYL 100 MCG/2 ML INJECTION (J3010) As Ordered ONE
--- NOTE | 2019-03-10 07:53 | IRHP ---
[facility] IR Pre-Procedure H & P General Date of Service: Mar 10, 2019 Procedure: Same Day Surgery Interval History and Physical I have seen the patient and reviewed last H & P performed within 30 days. There is no significant interval change. sedation per anesthesia History of Present Illness Chief Complaint The patient is a 84-year-old male admitted with a reason for visit of Liver Mets. PRE-PROCEDURE DIAGNOSIS: liver mets HEART: normal rate. LUNGS: normal breathing at rest. ASA Classification ASA Classification: II-Mild systemic disease, Other Mallampati Score: other NPO: Yes Problems with prior sedation: No Obstructive Sleep Apnea: No Plan sedation w/anesthediology Allergies Coded Allergies: No Known Allergies (Verified , 04/13/04) Home Medications Scheduled Apixaban (Eliquis), 5 MG PO BID, (Reported) L.dinah,Acid,Ferm,Rhm/B.bif,Long (Control Delivery Probiotc Cplt), 1 TAB PO DAILY, (Reported) Pedi Mv No.164/Ferrous Sulfate (-Toddler Multivit-Iron), 1 SUMIT PO DAILY, (Reported) Miscellaneous Medications Garlic (Garlic), 100 MG PO, (Reported) VS, I&O, 24H, Fishbone Vital Signs/I&O Vital Signs Date Time Temp Pulse Resp B/P (MAP) Pulse Ox O2 Delivery O2 Flow Rate FiO2 03/10/19 07:35 97.8 74 18 100 Room Air MELINDA WILDE MD Mar 10, 2019 07:53
--- NOTE | 2019-03-10 09:51 | POST-OPPD ---
Postoperative Procedure Note Date Of Procedure: Mar 10, 2019 Time Of Procedure: 09:49 PREOPERATIVE DIAGNOSIS: liver mets. pain POSTOPERATIVE DIAGNOSIS: liver mets. pain FINDINGS: liver mets. PROCEDURE: liver mets microwave ablation x 2 . see full report under imaging tab SURGEON: angela ANESTHESIA: anesthesiology ESTIMATED BLOOD LOSS: < 5 ml COMPLICATIONS: none POSTOPERATIVE CONDITION: stable MELINDA WILDE MD Mar 10, 2019 09:51
[2019-03-10] MEDS: MORPHINE 10 MG/ML 1ML VIAL (J2270) IV PRN ×5 (10:03→10:45)
[2019-03-10 12:20] VITALS: BP 155/82
--- NOTE | 2019-03-10 15:40 | REP ---
CT guided liver tumor microwave ablation. CT guided liver tumor microwave ablation CT-guided soft tissue ablation. CPT 00895 CPT 47355 Clinical information: Prostate cancer with enlarging liver metastasis. Right upper quadrant pain associated with capsular involvement. Physician: Dr. Akins. Referring physician: Dr. Grant. Procedure: The patient was advised of the benefits, risks and alternatives of the procedure and informed consent was obtained. The time-out was performed with verification of the patient's name, MRN, site of procedure and type of procedure to be performed. The patient was positioned in the supine position on the angiographic table. The site was prepped and draped in the usual sterile fashion. Anesthesia was administered by the anesthesia team. Preliminary CT demonstrates two metastatic lesions in the right hepatic lobe. One measuring 5.0 x 4.6 x 3.4 cm cranio-caudad and the second measuring 4.3 x 2.5 by 1.7 cm cranio-caudad. Tumor 1: The skin and expected tract were anesthetized with lidocaine. Using CT guidance, a micro wave probe was advanced into the larger of the two tumors using intermittent CT guidance for positioning. A 6-minute burn at 100 [address] was performed in order to yield an expected ablation zone measuring 4.2 x 4.9 cm. The needle was removed and a follow-up CT scan performed through the area which demonstrates expected post ablation changes in the treated area. No significant hematoma. Tumor 2: The skin and expected tract were anesthetized with lidocaine. Using CT guidance, a micro wave probe was advanced into the smaller and capsular of the two tumors using intermittent CT guidance for positioning. A 2-minute burn at 100 [address] was performed in order to yield an expected ablation zone measuring 3.0 x 3.7 cm. The needle was removed and a follow-up CT scan was performed through the area which demonstrates expected post ablation changes in the treated area. No significant hematoma. A sterile dressing was applied to the site. The patient tolerated the procedure well and was transferred to recovery in stable condition. EBL: Less than 5 ml. Complications: None. Impression: 1. CT demonstrates two metastatic lesions in the right hepatic lobe. 2. Successful CT-guided microwave ablation of two liver lesions. Patient to follow up in IR clinic with CT imaging in 1 month time. Thank you this referral. Electronically Signed by Ilana Akins MD 03/10/2019 03:39 P
== END ==
LOC: M IRPRO 06:52
PROVIDERS: ATTEND Radiology Diagnostic Radiology
DX: C78.7 Secondary malignant neoplasm of liver and intrahepatic bile duct (principal); C61 Malignant neoplasm of prostate; I48.91 Unspecified atrial fibrillation; Z87.891 Personal history of nicotine dependence; Z79.01 Long term (current) use of anticoagulants; Z91.018 Allergy to other foods
CPT/HCPCS: 47382; 77013; C1733; J2250; J2270; J3010

== ENCOUNTER 2019-03-17 09:23 | Emergency (ER) | payer MEDICARE, BC, OTHER ==
[~2019-03-17] VITALS: Ht 180.3 cm; Wt 83.8 kg
[~2019-03-17 09:23] MED LIST changes: -LIDOCAINE 1% MDV 20ML VIAL As Ordered ONE; -LR 1,000 ML IV SCH; -MIDAZOLAM INJ 2 MG/2 ML VIAL (J2250) As Ordered ONE; -MORPHINE 2 MG/ML 1ML VIAL (J2270) As Ordered ONE; -ONDANSETRON 4MG/2ML VIAL (J2405) IV PRN; -PERCOCET 5MG/325MG TAB As Ordered ONE; -PERCOCET 5MG/325MG TAB PO PRN; -fentaNYL 100 MCG/2 ML INJECTION (J3010) As Ordered ONE
[2019-03-17] MEDS ORDERED: ISOVUE-370 76% 100ML VIAL (Q9967) As Ordered ONE (10:42)
[2019-03-17 10:49] LABS: BASO % 0.5 % (0.0-1.0); EOS # 0.2 10^3/uL (0.0-0.5); EOS % 3.2 % (0.0-3.0); HEMATOCRIT 40.1 % (42.0-52.0); HEMOGLOBIN 13.7 g/dl (13.5-17.5); LYMPH # 0.8 10^3/uL (1.5-5.0); LYMPH % 13.3 % (24.0-44.0); MEAN CORPUSCULAR HEMOGLOBIN 32.5 pg (27.0-33.0); MEAN CORPUSCULAR HGB CONC 34.2 g/dl (32.0-36.5); MEAN CORPUSCULAR VOLUME 95.2 fl (80.0-96.0); MONO # 0.4 10^3/uL (0.0-0.8); MONO % 6.5 % (0.0-5.0); NEUTROPHILS # 4.3 10^3/uL (1.5-8.5); NEUTROPHILS % 76.1 % (36.0-66.0); PLATELET COUNT, AUTOMATED 223 10^3/uL (150-450); RED BLOOD COUNT 4.21 10^6/uL (4.30-6.10); WHITE BLOOD COUNT 5.7 10^3/uL (4.0-10.0)
[2019-03-17 11:00] LABS: INR 1.52; PROTHROMBIN TIME 18.1 SECONDS (11.8-14.0)
[2019-03-17 11:01] LABS: PARTIAL THROMBOPLASTIN TIME 38.8 SECONDS (25.0-38.4)
[2019-03-17 11:18] LABS: BILIRUBIN,DIRECT 0.3 MG/DL (0.0-0.2); BILIRUBIN,TOTAL 1.1 MG/DL (0.2-1.0); TOTAL PROTEIN 6.7 GM/DL (6.4-8.2)
--- NOTE | 2019-03-17 11:40 | REP ---
CT ABDOMEN AND PELVIS WITH IV BUT WITHOUT ORAL CONTRAST: HISTORY: Right upper quadrant pain. The patient is status post microwave ablation for enlarging metastatic lesion in the right lobe of the liver. The ablation procedure was dated March 10, 2019. COMPARISON CT STUDY: March 03, 2019 CT CONTRAST DOSE: 100 mL of intravenous Isovue-[address] FINDINGS: Preliminary digital human resources records clerk radiograph demonstrates metallic prostate seeds. Bowel gas pattern is unremarkable. There is a small right pleural effusion visible. This is a new finding compared with the March 03, 2019 prior study. There is discoid atelectasis in the right lower lobe of the lungs and in the left lower lobe. Granulomatous calcifications are scattered about the spleen. There is some mild contrast enhancement in the rim surrounding the ablated large right hepatic mass lesion. There is a larger volume of the tumor which does not enhance. The radiolucent lesion measures 6.9 cm in greatest medial to lateral span inferiorly and 7.2 cm in greatest medial to lateral span more superiorly. These measurements appear to correspond roughly to the plain or trajectory of the ablation device. There are gallstones within a small contracted gallbladder. No new liver lesion is appreciated. There are a few granulomatous calcifications in the liver. The pancreas is unremarkable. No evidence of ascites or free intraperitoneal air is seen. IMPRESSION: Expected post ablation changes in the right lobe of the liver in the area where previous study showed a mass. There is a small amount of pericapsular fluid between the ablated lesion and the diaphragm. There is a new small right pleural effusion and there is mild bibasilar lower lobe discoid atelectasis. Electronically Signed by Umer Tavarez MD 03/17/2019 01:47 P
[2019-03-17] MEDS ORDERED: COLA100C5 PO (11:51)
[2019-03-17] MEDS ORDERED: NORC1TAB7 PO (11:51)
[2019-03-17 11:57] VITALS: BP 117/70
== END 2019-03-17 12:05 | disposition home or self-care (01) ==
LOC: M ED 09:23
DX: G89.18 Other acute postprocedural pain (principal); J91.8 Pleural effusion in other conditions classified elsewhere; Z79.01 Long term (current) use of anticoagulants; Z79.899 Other long term (current) drug therapy
CPT/HCPCS: 74177; 80047; 80076; 85025; 85610; 85730; 99284; Q9967

== ENCOUNTER → 2019-03-18 | Outpatient (CLI) | payer MEDICARE, BC, OTHER ==
[~2019-03-18] MED LIST changes: +COLA100C5 PO; +NORC1TAB7 PO
== END ==
LOC: M SMT 15:54
PROVIDERS: ATTEND Urology
DX: C61 Malignant neoplasm of prostate (principal)

== ENCOUNTER → 2019-03-25 | Outpatient (POV) | payer MEDICARE, BC ==
[~2019-03-25] VITALS: Ht 180.3 cm; Wt 83.6 kg
[2019-03-25 08:50] VITALS: BP 145/72
--- NOTE | 2019-03-26 08:01 | IRPN ---
[facility] IR Progress Note IR Progress Note DATE: Mar 25, 2019 FOLLOW-UP: 2 weeks status post microwave ablation for right hepatic lobe lesion. Patient feels well. Initially had pain for about 7-10 days but now the pain is gone. Patient is no longer taking narcotics. Describes some discomfort in the anterior right thigh. ON EXAMINATION: Patient looks well. No apparent distress. Microwave ablation site right upper quadrant site; nontender no redness or discharge. Right anterior thigh; soft nontender. Sensation 5 out of 5 motor 5 out of 5 IMPRESSION: Doing well status post hepatic microwave ablation for pain palliation related to metastatic disease. Patient's pain is improved. Thigh pain is likely unrelated. Continue follow-up with urology and oncology. Patient to follow-up in IR clinic if symptoms recur. Cc Dr. Grant Cc Dr. Bin Mcdowell Thank you for this referral Allergies Coded Allergies: No Known Allergies (Verified , 04/13/04) VS,Fishbone, I+O VS, Fishbone, I+O Vital Signs Date Time Temp Pulse Resp B/P (MAP) Pulse Ox O2 Delivery O2 Flow Rate FiO2 03/25/19 08:50 98.0 84 16 145/72 (96) 99 Room Air MELINDA WILDE MD Mar 26, 2019 08:01
== END ==
LOC: M IRPOV 08:46
PROVIDERS: ATTEND Radiology Diagnostic Radiology
DX: K76.89 Other specified diseases of liver (principal); C61 Malignant neoplasm of prostate

== ENCOUNTER → 2019-06-10 | Outpatient (CLI) | payer MEDICARE, BC ==
[~2019-06-10] MED LIST changes: +ISOVUE-370 76% 100ML VIAL (Q9967) As Ordered ONE; +ONDA8TAB10 PO; -ONDA8TAB7 PO
== END ==
LOC: M RAD 11:52
PROVIDERS: ATTEND Radiology Diagnostic Radiology
DX: C22.9 Malignant neoplasm of liver, not specified as primary or secondary (principal); K80.20 Calculus of gallbladder without cholecystitis without obstruction; R91.8 Other nonspecific abnormal finding of lung field; Q61.02 Congenital multiple renal cysts

== ENCOUNTER → 2019-06-10 | Outpatient (POV) | payer MEDICARE, BC ==
[~2019-06-10] VITALS: Ht 180.3 cm; Wt 81.8 kg
[~2019-06-10] MED LIST changes: -ISOVUE-370 76% 100ML VIAL (Q9967) As Ordered ONE
--- NOTE | 2019-06-10 12:55 | REP ---
CT of the abdomen with IV contrast dual phase imaging , without bowel contrast: Comparison is 03/03/2019. The the patient has two known hepatic metastases. The patient underwent microwave ablation of these two metastatic lesions on 03/17/2019. Today these two lesions are hypodense and demonstrate no central enhancement with IV contrast, compatible with necrosis. There is mild enhancement at the periphery of each of these lesions. There is slight capsular thickening of the liver overlying these lesions which may be a post procedural change. The hepatic parenchyma is otherwise homogeneous and unremarkable. There is no para hepatic fluid collection. There are multiple gallbladder calculi with rim calcification, as previously. The gallbladder is otherwise unremarkable. There is no biliary duct dilatation. The pancreas and spleen are unremarkable except for splenic calcified granulomas, unchanged. The adrenals are unremarkable. There are two Bosniak type 1 left renal cysts, one at the upper pole measuring 15 mm and the other at the mid pole measuring 38 mm. These are not significantly changed. The abdominal aorta is unremarkable. There is no periaortic adenopathy or mass. The bowel and mesentery are unremarkable. The visualized lower lung oconnell are unremarkable except for a left lower lobe calcified granuloma. This is unchanged. The pelvis is not included in the study. Impression: The two known hepatic metastases are hypodense and demonstrate no central enhancement with IV contrast, compatible with necrosis. There is mild enhancement at the periphery of each of these lesions. There is no para hepatic fluid collection. There is mild hepatic capsular thickening overlying these lesions, likely a post procedural change. Cholelithiasis, unchanged. Splenic calcified granulomas, unchanged. The left lung with lower lobe calcified granuloma, unchanged. Bosniak type 1 left renal cysts, unchanged. Electronically Signed by Javi Shah MD 06/10/2019 12:47 P
[2019-06-10 13:30] VITALS: BP 137/90
--- NOTE | 2019-06-11 11:29 | IRPN ---
[facility] IR Progress Note IR Progress Note DATE: Jun 10, 2019 FOLLOW-UP: Doing well status post palliative microwave ablation for pain related to metastatic disease in the liver. Patient is now pain-free. He is gardening, active and enjoying life. He does have urinary symptoms including getting up multiple times at night to urinate. He continues in the care of urology. Imaging: I personally reviewed the same day CT abdomen with contrast. Post ablation changes are noted in the treated region. No tumor extending to the capsular area. Other enhancing peripheral tumor remains as expected. IMPRESSION: Successful palliation of pain status post microwave ablation for liver metastases. Annual follow-up. Thank you for this referral Cc Dr. Hernandez Cc Dr. Bin Mcdowell Allergies Coded Allergies: No Known Allergies (Verified , 04/13/04) VS,Fishbone, I+O VS, Fishbone, I+O Vital Signs Date Time Temp Pulse Resp B/P (MAP) Pulse Ox O2 Delivery O2 Flow Rate FiO2 06/10/19 13:30 97.1 90 18 137/90 (106) 95 Room Air MELINDA WILDE MD Jun 11, 2019 11:29
== END ==
LOC: M IRPOV 11:58
PROVIDERS: ATTEND Radiology Diagnostic Radiology
DX: C22.9 Malignant neoplasm of liver, not specified as primary or secondary (principal); K80.20 Calculus of gallbladder without cholecystitis without obstruction; R91.8 Other nonspecific abnormal finding of lung field; Q61.02 Congenital multiple renal cysts
CPT/HCPCS: Q9967; 74160; G0463

== ENCOUNTER 2019-06-20 15:23 | Emergency (ER) | payer MEDICARE, BC ==
[~2019-06-20] VITALS: Ht 180.3 cm; Wt 83.2 kg
[2019-06-20 16:29] LABS: BASO # 0.1 10^3/uL (0.0-0.2); EOS # 0.1 10^3/uL (0.0-0.5); EOS % 2.5 % (0.0-3.0); HEMATOCRIT 41.5 % (42.0-52.0); HEMOGLOBIN 14.5 g/dl (13.5-17.5); LYMPH # 1.1 10^3/uL (1.5-5.0); LYMPH % 21.4 % (24.0-44.0); MEAN CORPUSCULAR HGB CONC 34.9 g/dl (32.0-36.5); MEAN CORPUSCULAR VOLUME 91.6 fl (80.0-96.0); MONO # 0.4 10^3/uL (0.0-0.8); MONO % 6.8 % (0.0-5.0); NEUTROPHILS # 3.5 10^3/uL (1.5-8.5); NEUTROPHILS % 68.1 % (36.0-66.0); PLATELET COUNT, AUTOMATED 179 10^3/uL (150-450); RED BLOOD COUNT 4.53 10^6/uL (4.30-6.10); WHITE BLOOD COUNT 5.2 10^3/uL (4.0-10.0)
[2019-06-20 16:53] LABS: ALBUMIN 3.8 GM/DL (3.2-5.2); BILIRUBIN,DIRECT 0.3 MG/DL (0.0-0.2); TOTAL PROTEIN 6.8 GM/DL (6.4-8.2)
[2019-06-20] MEDS ORDERED: GABA-843 PO (17:21)
[2019-06-20 17:35] VITALS: BP 149/95
[2019-06-24] MEDS ORDERED: XTAN40CA PO (14:31)
== END 2019-06-20 17:37 | disposition home or self-care (01) ==
LOC: M ED 15:23
DX: M79.2 Neuralgia and neuritis, unspecified (principal); R10.9 Unspecified abdominal pain; I48.92 Unspecified atrial flutter; C61 Malignant neoplasm of prostate; C78.7 Secondary malignant neoplasm of liver and intrahepatic bile duct; Z79.01 Long term (current) use of anticoagulants; Z79.899 Other long term (current) drug therapy

== ENCOUNTER 2019-06-23 13:28 | Emergency (ER) | payer MEDICARE, BC ==
[~2019-06-23] VITALS: Ht 180.3 cm; Wt 86.3 kg
[~2019-06-23 13:28] MED LIST changes: +GABA-843 PO
[2019-06-23 15:11] LABS: BASO # 0.1 10^3/uL (0.0-0.2); BASO % 1.2 % (0.0-1.0); EOS # 0.1 10^3/uL (0.0-0.5); EOS % 2.9 % (0.0-3.0); HEMATOCRIT 39.8 % (42.0-52.0); HEMOGLOBIN 13.9 g/dl (13.5-17.5); LYMPH % 23.9 % (24.0-44.0); MEAN CORPUSCULAR HEMOGLOBIN 32.4 pg (27.0-33.0); MEAN CORPUSCULAR HGB CONC 34.9 g/dl (32.0-36.5); MEAN CORPUSCULAR VOLUME 92.8 fl (80.0-96.0); MONO # 0.3 10^3/uL (0.0-0.8); MONO % 6.7 % (0.0-5.0); NEUTROPHILS # 2.7 10^3/uL (1.5-8.5); NEUTROPHILS % 65.3 % (36.0-66.0); PLATELET COUNT, AUTOMATED 173 10^3/uL (150-450); RED BLOOD COUNT 4.29 10^6/uL (4.30-6.10); WHITE BLOOD COUNT 4.2 10^3/uL (4.0-10.0)
[2019-06-23] MEDS ORDERED: ISOVUE-370 76% 100ML VIAL (Q9967) As Ordered ONE (15:17)
[2019-06-23 15:38] LABS: ALBUMIN 3.4 GM/DL (3.2-5.2); BILIRUBIN,DIRECT 0.3 MG/DL (0.0-0.2); BILIRUBIN,TOTAL 1.1 MG/DL (0.2-1.0); TOTAL PROTEIN 6.1 GM/DL (6.4-8.2)
--- NOTE | 2019-06-23 15:52 | REP ---
Clinical: Left-sided abdominal pain and flank pain. Technique: Axial contrast enhanced images from the lung bases to the pubic symphysis using 100 ml Isovue 370 intravenous contrast material with coronal and sagittal re-formations. Comparison: 06/10/2019 Findings: Lung bases demonstrate stable chronic interstitial changes and calcifications at the left costophrenic angle. Liver demonstrates hypodense area extending from the capsule centrally and involving the anterior right to medial left hepatic lobes without enhancement and consistent with area of necrosis related to prior ablation. No new hepatic lesion identified. Spleen, pancreas, bilateral adrenal glands and right kidney are normal. Cholelithiasis noted without acute cholecystitis. Left kidney includes stable simple cysts. Splenic calcifications consistent with prior granulomatous disease. The enteric system is without obstruction or acute inflammatory process. Pelvis demonstrates normal bladder and evidence for prior prostate seeding. No ascites. No free air. No adenopathy. Abdominal aorta without aneurysm or dissection. Musculoskeletal structures demonstrate degenerative changes without acute focal abnormality. Impression: 1. Low density changes within the liver consistent with areas of necrosis related to prior ablation therapy. No enhancing abnormalities. 2. Cholelithiasis. 3. Stable benign appearing left renal cysts. 4. Few scattered colonic diverticula without acute diverticulitis. 5. No ascites. Adenopathy, or focal inflammatory stranding. Electronically Signed by Lance Gleason MD 06/23/2019 03:44 P
[2019-06-23] MEDS ORDERED: PRED20TA PO (16:32)
[2019-06-23 16:44] VITALS: BP 136/85
--- NOTE | 2019-06-23 19:46 | ECGEPIP ---
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
[2019-06-24] MEDS ORDERED: XTAN40CA PO (14:31)
--- NOTE | 2019-06-25 11:05 | ED PDOC ---
Post-Departure Follow-Up radiology report faxed to Marisa Jackson MD Jun 25, 2019 11:05
== END 2019-06-23 16:46 | disposition home or self-care (01) ==
LOC: M ED 13:28
DX: R10.32 Left lower quadrant pain (principal); I48.91 Unspecified atrial fibrillation; C61 Malignant neoplasm of prostate; C78.7 Secondary malignant neoplasm of liver and intrahepatic bile duct; K80.80 Other cholelithiasis without obstruction; N28.1 Cyst of kidney, acquired; K57.30 Diverticulosis of large intestine without perforation or abscess without bleeding; Z79.01 Long term (current) use of anticoagulants; Z79.899 Other long term (current) drug therapy
CPT/HCPCS: 36415; 74177; 80047; 80076; 83605; 83690; 85025; 93005; 99284; Q9967

== ENCOUNTER → 2019-08-29 | Outpatient (CLI) | payer MEDICARE, BC ==
[~2019-08-29] MED LIST changes: +PRED20TA PO; +XTAN40CA PO
[2019-08-29 10:53] LABS: BASO % 0.7 % (0.0-1.0); EOS # 0.1 10^3/uL (0.0-0.5); EOS % 3.1 % (0.0-3.0); HEMATOCRIT 43.5 % (42.0-52.0); HEMOGLOBIN 15.1 g/dl (13.5-17.5); LYMPH # 1.2 10^3/uL (1.5-5.0); LYMPH % 27.8 % (24.0-44.0); MEAN CORPUSCULAR HEMOGLOBIN 32.4 pg (27.0-33.0); MEAN CORPUSCULAR HGB CONC 34.7 g/dl (32.0-36.5); MEAN CORPUSCULAR VOLUME 93.3 fl (80.0-96.0); MONO # 0.3 10^3/uL (0.0-0.8); NEUTROPHILS # 2.5 10^3/uL (1.5-8.5); NEUTROPHILS % 61.2 % (36.0-66.0); PLATELET COUNT, AUTOMATED 205 10^3/uL (150-450); RED BLOOD COUNT 4.66 10^6/uL (4.30-6.10); WHITE BLOOD COUNT 4.1 10^3/uL (4.0-10.0)
[2019-08-29 11:21] LABS: ALBUMIN 3.7 GM/DL (3.2-5.2); ALT/SGPT 18 U/L (12-78); BILIRUBIN,TOTAL 1.6 MG/DL (0.2-1.0); BLOOD UREA NITROGEN 9 MG/DL (7-18); CALCIUM LEVEL 9.4 MG/DL (8.8-10.2); CARBON DIOXIDE LEVEL 29 MEQ/L (21-32); CHLORIDE LEVEL 106 MEQ/L (98-107); CREATININE FOR GFR 0.88 MG/DL (0.70-1.30); GLOMERULAR FILTRATION RATE > 60.0 (>35); GLUCOSE, FASTING 97 MG/DL (70-100); POTASSIUM SERUM 4.3 MEQ/L (3.5-5.1); SODIUM LEVEL 139 MEQ/L (136-145); TOTAL PROTEIN 6.9 GM/DL (6.4-8.2)
== END ==
LOC: M LAB 10:31
PROVIDERS: ATTEND Internal Medicine Hematology
DX: C61 Malignant neoplasm of prostate (principal)

== ENCOUNTER → 2021-02-02 | Outpatient (CLI) | payer MEDICARE, BC ==
[~2021-02-02] MED LIST changes: +GABA-282 PO; -GABA-843 PO
== END ==
LOC: M PLALAB 08:59
PROVIDERS: ATTEND Urology
DX: C61 Malignant neoplasm of prostate (principal)

== ENCOUNTER → 2021-08-10 | Outpatient (CLI) | payer MEDICARE, BC ==
[~2021-08-10] MED LIST changes: +ONDA-84 PO; -ONDA8TAB10 PO; -PROC10TA4 PO; +PROC10TA5 PO
== END ==
LOC: M PLALAB 09:45
PROVIDERS: ATTEND Urology
DX: C61 Malignant neoplasm of prostate (principal)

== ENCOUNTER 2021-12-31 11:41 | Inpatient (IN) | payer MEDICARE, BC ==
[~2021-12-31] VITALS: Ht 180.3 cm; Wt 81.0 kg
[2021-12-31] MEDS ORDERED: MORPHINE 4 MG/ML 1ML VIAL/SYRINGE IV ONE ×2 (12:15→15:40)
[2021-12-31 13:16] LABS: BASO % 0.2 % (0.0-1.0); EOS % 0.1 % (0.0-3.0); HEMATOCRIT 41.6 % (42.0-52.0); LYMPH # 0.6 10^3/uL (1.5-5.0); LYMPH % 7.5 % (24.0-44.0); MEAN CORPUSCULAR HEMOGLOBIN 32.1 pg (27.0-33.0); MEAN CORPUSCULAR HGB CONC 33.7 g/dl (32.0-36.5); MEAN CORPUSCULAR VOLUME 95.4 fl (80.0-96.0); MONO # 0.4 10^3/uL (0.0-0.8); MONO % 4.7 % (2.0-8.0); NEUTROPHILS # 7.4 10^3/uL (1.5-8.5); NEUTROPHILS % 87.3 % (36.0-66.0); PLATELET COUNT, AUTOMATED 185 10^3/uL (150-450); RED BLOOD COUNT 4.36 10^6/uL (4.30-6.10); WHITE BLOOD COUNT 8.4 10^3/uL (4.0-10.0)
[2021-12-31 13:27] LABS: INR 1.24
[2021-12-31 13:28] LABS: PARTIAL THROMBOPLASTIN TIME 34.7 SECONDS (25.9-37.0)
[2021-12-31 13:37] LABS: ALBUMIN 3.7 GM/DL (3.2-5.2); BILIRUBIN,DIRECT 0.3 MG/DL (0.0-0.2); BILIRUBIN,TOTAL 1.3 MG/DL (0.2-1.0); C REACTIVE PROTEIN QUANTITATIV 2.09 MG/DL (0.00-0.30); TOTAL PROTEIN 6.8 GM/DL (6.4-8.2); URIC ACID 3.5 MG/DL (3.5-7.2)
[2021-12-31 13:44] LABS: ERYTHROCYTE SEDIMENTATION RATE 18 mm/hr (0-20)
[2021-12-31] MEDS ORDERED: ceFAZolin SOD 2 GM in IV 1 EA IV ONE (14:55)
[2021-12-31 15:20] VITALS: BP 134/65
[2021-12-31] MEDS ORDERED: VANCOMYCIN HCL 1,500 MG in IV FLUID PLACE HOLDER 1 EA IV ONE (15:20)
[2021-12-31] MEDS ORDERED: ONDANSETRON 4MG 2ML VIAL IV ONE (15:35)
[2021-12-31] MEDS ORDERED: HOME MED LIST COMPLETE! XX SCH (15:40)
[2021-12-31] MEDS ORDERED: PROB1CAP10 PO (15:40)
[2021-12-31] MEDS ORDERED: XTAN40CA PO (15:40)
[2021-12-31] MEDS ORDERED: D-10TAB3 PO (15:40)
[2021-12-31] MEDS ORDERED: ELIQ5TAB PO (15:40)
[2021-12-31] MEDS ORDERED: ACETAMINOPHEN 325 MG TAB PO ONE (15:45)
[2021-12-31] MEDS ORDERED: VANCOMYCIN HCL 750 MG, VIAL MATE ADAPTER 1 EACH in D5W 250 ML IV ONE ×6 (16:00)
[2021-12-31] MEDS ORDERED: ONDANSETRON 4MG 2ML VIAL IV PRN (16:50)
[2021-12-31] MEDS ORDERED: ACETAMINOPHEN TAB 650MG DOSE (2X325MG) PO PRN (16:50)
[2021-12-31] MEDS ORDERED: PERCOCET 5MG/325MG TAB PO PRN (16:50)
[2021-12-31 17:20] VITALS: BP 134/65
[2021-12-31] MEDS: KETOROLAC 30 MG/ML 1ML VIAL IV SCH ×2 (18:15→23:06)
[2021-12-31 19:40] VITALS: BP 126/67
[2021-12-31] MEDS: PIPERACILLIN/TAZOBACTAM SOD 3.375 GM in D5W MINI-BAG PLUS 50 ML IV SCH ×2 (19:44→23:06)
[2022-01-01 00:19] LABS: CRYSTALS, BODY FLUID NONE SEEN (NONE SEEN); SOURCE, BODY FLUID CRYSTALS RT WRIST
[2022-01-01] MEDS: KETOROLAC 30 MG/ML 1ML VIAL IV SCH ×4 (04:34→21:26)
[2022-01-01] MEDS: PIPERACILLIN/TAZOBACTAM SOD 3.375 GM in D5W MINI-BAG PLUS 50 ML IV SCH ×4 (05:10→23:52)
[2022-01-01 05:17] VITALS: BP 100/60
[2022-01-01 06:15] LABS: BASO % 0.7 % (0.0-1.0); EOS # 0.1 10^3/uL (0.0-0.5); EOS % 2.5 % (0.0-3.0); HEMATOCRIT 34.7 % (42.0-52.0); LYMPH # 1.1 10^3/uL (1.5-5.0); LYMPH % 26.7 % (24.0-44.0); MEAN CORPUSCULAR HEMOGLOBIN 33.1 pg (27.0-33.0); MEAN CORPUSCULAR HGB CONC 34.6 g/dl (32.0-36.5); MEAN CORPUSCULAR VOLUME 95.9 fl (80.0-96.0); MONO # 0.5 10^3/uL (0.0-0.8); MONO % 11.1 % (2.0-8.0); NEUTROPHILS # 2.4 10^3/uL (1.5-8.5); NEUTROPHILS % 58.8 % (36.0-66.0); PLATELET COUNT, AUTOMATED 146 10^3/uL (150-450); RED BLOOD COUNT 3.62 10^6/uL (4.30-6.10)
[2022-01-01] MEDS: VANCOMYCIN HCL 750 MG, VIAL MATE ADAPTER 1 EACH in NS 250 ML IV SCH ×2 (06:20→18:34)
[2022-01-01 06:37] LABS: BLOOD UREA NITROGEN 18 MG/DL (7-18); CALCIUM LEVEL 8.8 MG/DL (8.8-10.2); CARBON DIOXIDE LEVEL 27 MEQ/L (21-32); CHLORIDE LEVEL 107 MEQ/L (98-107); CREATININE FOR GFR 1.06 MG/DL (0.70-1.30); GLOMERULAR FILTRATION RATE > 60.0 (>35); GLUCOSE, FASTING 105 MG/DL (70-100); POTASSIUM SERUM 3.9 MEQ/L (3.5-5.1); SODIUM LEVEL 139 MEQ/L (136-145)
[2022-01-01] MEDS ORDERED: XTANDI 40 MG PO SCH (09:00)
[2022-01-01] MEDS: VITAMIN D 1,000 INTERNATIONAL UNITS TABLET PO SCH (10:05)
[2022-01-01 14:00] VITALS: BP 108/63
[2022-01-01 19:00] VITALS: BP 111/65
[2022-01-01] MEDS: APIXABAN 5 MG TAB (ELIQUIS) PO SCH (20:52)
[2022-01-02] MEDS: PIPERACILLIN/TAZOBACTAM SOD 3.375 GM in D5W MINI-BAG PLUS 50 ML IV SCH ×4 (05:00→23:31)
[2022-01-02] MEDS: KETOROLAC 30 MG/ML 1ML VIAL IV SCH ×4 (05:01→23:31)
[2022-01-02 06:00] VITALS: BP_SYST 111; BP_SYST 67; BP_DIAS 111; BP_DIAS 67
[2022-01-02] MEDS: VANCOMYCIN HCL 750 MG, VIAL MATE ADAPTER 1 EACH in NS 250 ML IV SCH ×2 (06:06→17:05)
[2022-01-02 06:13] LABS: BASO % 0.8 % (0.0-1.0); EOS # 0.2 10^3/uL (0.0-0.5); EOS % 4.7 % (0.0-3.0); HEMATOCRIT 33.1 % (42.0-52.0); HEMOGLOBIN 11.6 g/dl (13.5-17.5); LYMPH % 27.2 % (24.0-44.0); MEAN CORPUSCULAR HEMOGLOBIN 33.4 pg (27.0-33.0); MEAN CORPUSCULAR VOLUME 95.4 fl (80.0-96.0); MONO # 0.3 10^3/uL (0.0-0.8); MONO % 8.2 % (2.0-8.0); NEUTROPHILS # 2.2 10^3/uL (1.5-8.5); NEUTROPHILS % 58.8 % (36.0-66.0); PLATELET COUNT, AUTOMATED 143 10^3/uL (150-450); RED BLOOD COUNT 3.47 10^6/uL (4.30-6.10); WHITE BLOOD COUNT 3.8 10^3/uL (4.0-10.0)
[2022-01-02] MEDS: XTANDI 40 MG PO SCH (06:48)
[2022-01-02 06:51] LABS: BLOOD UREA NITROGEN 17 MG/DL (7-18); CALCIUM LEVEL 8.5 MG/DL (8.8-10.2); CARBON DIOXIDE LEVEL 26 MEQ/L (21-32); CHLORIDE LEVEL 109 MEQ/L (98-107); CREATININE FOR GFR 0.91 MG/DL (0.70-1.30); GLOMERULAR FILTRATION RATE > 60.0 (>35); GLUCOSE, FASTING 109 MG/DL (70-100); SODIUM LEVEL 140 MEQ/L (136-145)
[2022-01-02 09:45] VITALS: BP 120/79
[2022-01-02] MEDS: APIXABAN 5 MG TAB (ELIQUIS) PO SCH ×2 (10:24→20:36)
[2022-01-02] MEDS: VITAMIN D 1,000 INTERNATIONAL UNITS TABLET PO SCH (10:24)
[2022-01-02 14:00] VITALS: BP 117/79
[2022-01-02 22:00] VITALS: BP 140/82
[2022-01-03] MEDS ORDERED: VANCOMYCIN HCL 1,000 MG, VIAL MATE ADAPTER 1 EACH in D5W 250 ML IV SCH (03:00)
[2022-01-03] MEDS: KETOROLAC 30 MG/ML 1ML VIAL IV SCH ×2 (03:19→09:17)
[2022-01-03 05:42] VITALS: BP 138/83
[2022-01-03 06:24] LABS: BASO % 0.5 % (0.0-1.0); EOS # 0.3 10^3/uL (0.0-0.5); EOS % 6.6 % (0.0-3.0); HEMATOCRIT 33.6 % (42.0-52.0); HEMOGLOBIN 11.9 g/dl (13.5-17.5); LYMPH % 26.3 % (24.0-44.0); MEAN CORPUSCULAR HEMOGLOBIN 33.4 pg (27.0-33.0); MEAN CORPUSCULAR HGB CONC 35.4 g/dl (32.0-36.5); MEAN CORPUSCULAR VOLUME 94.4 fl (80.0-96.0); MONO # 0.3 10^3/uL (0.0-0.8); NEUTROPHILS # 2.2 10^3/uL (1.5-8.5); NEUTROPHILS % 58.3 % (36.0-66.0); PLATELET COUNT, AUTOMATED 163 10^3/uL (150-450); RED BLOOD COUNT 3.56 10^6/uL (4.30-6.10); WHITE BLOOD COUNT 3.8 10^3/uL (4.0-10.0)
[2022-01-03] MEDS: PIPERACILLIN/TAZOBACTAM SOD 3.375 GM in D5W MINI-BAG PLUS 50 ML IV SCH (06:28)
[2022-01-03] MEDS: XTANDI 40 MG PO SCH (06:28)
[2022-01-03 07:01] LABS: BLOOD UREA NITROGEN 16 MG/DL (7-18); CALCIUM LEVEL 8.8 MG/DL (8.8-10.2); CARBON DIOXIDE LEVEL 25 MEQ/L (21-32); CHLORIDE LEVEL 110 MEQ/L (98-107); CREATININE FOR GFR 0.86 MG/DL (0.70-1.30); GLOMERULAR FILTRATION RATE > 60.0 (>35); GLUCOSE, FASTING 103 MG/DL (70-100); SODIUM LEVEL 142 MEQ/L (136-145)
[2022-01-03] MEDS: APIXABAN 5 MG TAB (ELIQUIS) PO SCH (09:16)
[2022-01-03] MEDS: VITAMIN D 1,000 INTERNATIONAL UNITS TABLET PO SCH (09:16)
[2022-01-03] MEDS ORDERED: ZYVO1TAB PO ×2 (11:41→15:18)
[2022-01-03 14:00] VITALS: BP 135/82
== END 2022-01-03 15:45 | disposition home or self-care (01) | DRG 549 ==
LOC: M ED 11:41 → M ED INP 15:17 → ENRESERV 16:28 → M MSPAV 17:51
PROVIDERS: ADMIT Internal Medicine Nephrology; ATTEND Internal Medicine
PROC: 0R9N3ZX Drainage of Right Wrist Joint, Percutaneous Approach, Diagnostic (ICD-10-PCS; principal; 2021-12-31)
DX: M00.031 Staphylococcal arthritis, right wrist (principal); L03.113 Cellulitis of right upper limb; C78.7 Secondary malignant neoplasm of liver and intrahepatic bile duct; L03.123 Acute lymphangitis of right upper limb; C61 Malignant neoplasm of prostate; I48.0 Paroxysmal atrial fibrillation; Z79.01 Long term (current) use of anticoagulants

== ENCOUNTER → 2022-01-25 | Outpatient (CLI) | payer MEDICARE, BC ==
[~2022-01-25] MED LIST changes: +D-10TAB3 PO; +PROB1CAP10 PO; +ZYVO1TAB PO
[2022-01-25 16:53] LABS: BASO % 0.8 % (0.0-1.0); EOS # 0.1 10^3/uL (0.0-0.5); EOS % 3.1 % (0.0-3.0); HEMATOCRIT 34.8 % (42.0-52.0); HEMOGLOBIN 11.4 g/dl (13.5-17.5); LYMPH # 1.2 10^3/uL (1.5-5.0); LYMPH % 34.5 % (24.0-44.0); MEAN CORPUSCULAR HEMOGLOBIN 31.9 pg (27.0-33.0); MEAN CORPUSCULAR HGB CONC 32.8 g/dl (32.0-36.5); MEAN CORPUSCULAR VOLUME 97.5 fl (80.0-96.0); MONO # 0.2 10^3/uL (0.0-0.8); MONO % 5.3 % (2.0-8.0); PLATELET COUNT, AUTOMATED 134 10^3/uL (150-450); RED BLOOD COUNT 3.57 10^6/uL (4.30-6.10); WHITE BLOOD COUNT 3.6 10^3/uL (4.0-10.0)
[2022-01-25 17:48] LABS: ALBUMIN 3.2 GM/DL (3.2-5.2); BILIRUBIN,DIRECT 0.2 MG/DL (0.0-0.2); TOTAL PROTEIN 6.1 GM/DL (6.4-8.2)
== END ==
LOC: M WUC 15:28
PROVIDERS: ATTEND Nurse Practitioner Adult Health
DX: D72.818 Other decreased white blood cell count (principal); Z79.899 Other long term (current) drug therapy; R11.0 Nausea

== ENCOUNTER → 2022-05-31 | Outpatient (CLI) | payer MEDICARE, BC ==
[~2022-05-31] MED LIST changes: -DOXY-350 PO; +DOXY-444 PO
== END ==
LOC: M WUC 10:32
PROVIDERS: ATTEND Urology
DX: C61 Malignant neoplasm of prostate (principal); M85.842 Other specified disorders of bone density and structure, left hand; M85.841 Other specified disorders of bone density and structure, right hand; M19.031 Primary osteoarthritis, right wrist; M19.032 Primary osteoarthritis, left wrist; S63.511A Sprain of carpal joint of right wrist, initial encounter; S63.512A Sprain of carpal joint of left wrist, initial encounter

== ENCOUNTER → 2022-05-31 | Outpatient (CLI) | payer MEDICARE, BC ==
[2022-05-31 12:28] LABS: BASO % 0.6 % (0.0-1.0); EOS # 0.1 10^3/uL (0.0-0.5); EOS % 1.8 % (0.0-3.0); HEMATOCRIT 44.4 % (42.0-52.0); HEMOGLOBIN 14.9 g/dl (13.5-17.5); LYMPH # 1.1 10^3/uL (1.5-5.0); MEAN CORPUSCULAR HEMOGLOBIN 32.2 pg (27.0-33.0); MEAN CORPUSCULAR HGB CONC 33.6 g/dl (32.0-36.5); MEAN CORPUSCULAR VOLUME 95.9 fl (80.0-96.0); MONO # 0.3 10^3/uL (0.0-0.8); MONO % 6.1 % (2.0-8.0); NEUTROPHILS # 3.4 10^3/uL (1.5-8.5); NEUTROPHILS % 68.3 % (36.0-66.0); PLATELET COUNT, AUTOMATED 218 10^3/uL (150-450); RED BLOOD COUNT 4.63 10^6/uL (4.30-6.10); WHITE BLOOD COUNT 4.9 10^3/uL (4.0-10.0)
== END ==
LOC: M WUC 11:09
PROVIDERS: ATTEND Physician Assistant
DX: M85.841 Other specified disorders of bone density and structure, right hand (principal); M85.842 Other specified disorders of bone density and structure, left hand; M19.031 Primary osteoarthritis, right wrist; M19.032 Primary osteoarthritis, left wrist; S63.511A Sprain of carpal joint of right wrist, initial encounter; S63.512A Sprain of carpal joint of left wrist, initial encounter

== ENCOUNTER → 2022-12-06 | Outpatient (CLI) | payer MEDICARE, BC ==
[~2022-12-06] MED LIST changes: +ACID1TAB PO; +AZIT-10 PO; +BACL10TA2 PO; +HYDR-3713 PO; +PRED5TA PO; +TRIA1CR80 TOP; +ZYTI250T PO
== END ==
LOC: M ONCR 12:44
PROVIDERS: ATTEND Radiology Radiation Oncology
DX: C61 Malignant neoplasm of prostate (principal); C79.51 Secondary malignant neoplasm of bone; C49.9 Malignant neoplasm of connective and soft tissue, unspecified; R97.20 Elevated prostate specific antigen [PSA]; Z71.2 Person consulting for explanation of examination or test findings; Z79.01 Long term (current) use of anticoagulants; Z87.891 Personal history of nicotine dependence

== ENCOUNTER 2022-12-27 09:46 | Outpatient (RCR) | payer MEDICARE, BC ==
[~2022-12-27 09:46] MED LIST changes: +PRED50TA PO
[2023-01-02] MEDS ORDERED: [UNRECOGNIZED DRUG - OTHER] (10:43)
== END 2023-01-04 ==
LOC: M ONCR 09:46 → M ONCM 09:46
PROVIDERS: ATTEND General Practice
DX: Z51.0 Encounter for antineoplastic radiation therapy (principal); C79.51 Secondary malignant neoplasm of bone; C61 Malignant neoplasm of prostate

== ENCOUNTER → 2023-01-02 | Outpatient (CLI) | payer MEDICARE, BC ==
[~2023-01-02] VITALS: Ht 180.3 cm; Wt 79.7 kg
[~2023-01-02] MED LIST changes: +[UNRECOGNIZED DRUG - OTHER]
[2023-01-02 10:36] VITALS: BP 156/91; TEMP 96.7; O2SAT 98
== END ==
LOC: M PAL 10:23
PROVIDERS: ATTEND Nurse Practitioner Adult Health
DX: C61 Malignant neoplasm of prostate (principal); C78.7 Secondary malignant neoplasm of liver and intrahepatic bile duct; C79.51 Secondary malignant neoplasm of bone; I48.92 Unspecified atrial flutter; Z92.21 Personal history of antineoplastic chemotherapy; Z92.3 Personal history of irradiation; Z79.52 Long term (current) use of systemic steroids; Z79.01 Long term (current) use of anticoagulants; Z87.891 Personal history of nicotine dependence; K59.00 Constipation, unspecified; Z66 Do not resuscitate; Z51.5 Encounter for palliative care

== ENCOUNTER → 2023-02-09 | Outpatient (REF) | payer MEDICARE, BC ==
[2023-02-09 17:59] LABS: ATYPICAL LYMPH 1 % (0-5); BASOPHILS 2 % (0-1); LYMPHOCYTES 8 % (16-44); MONOCYTES 5 % (0-5); NEUTROPHILS 84 % (28-66)
[2023-02-09 18:00] LABS: PLATELET ESTIMATE NORMAL (NORMAL)
== END ==
LOC: M LAB REF 16:33
PROVIDERS: ATTEND Nurse Practitioner Family
DX: D72.89 Other specified disorders of white blood cells (principal)